=== PATIENT | male | born 1950 | race Caucasian/White ===

== ENCOUNTER 2021-08-07 01:04 | Inpatient (IN) | payer MEDICARE, OTHER ==
[~2021-08-07] VITALS: Ht 182.9 cm; Wt 87.1 kg
[2021-08-07] MEDS ORDERED: ACETAMINOPHEN 325 MG TAB PO ONE (01:30)
[2021-08-07 04:15] LABS: Albumin 1.9 g/dL (3.4-5.0); Calcium 8.2 mg/dL (8.5-10.1)
[2021-08-07 04:20] LABS: BUN/Creatinine Ratio 19.8; Bilirubin, Total 1.8 mg/dL (0.2-1.0); Total Protein 7.2 g/dL (6.4-8.2)
[2021-08-07 04:28] LABS: Potassium 2.6 mmol/L (3.5-5.1)
[2021-08-07] MEDS ORDERED: ASPirin 325 MG TAB PO ONE (06:15)
[2021-08-07] MEDS ORDERED: ENOXAPARIN SOD 100 MG/1 ML SYRINGE SC ONE (06:15)
[2021-08-07] MEDS ORDERED: POTASSIUM CHL 20MEQ/100ML 100 ML IV STA (06:16)
[2021-08-07 06:48] LABS: Basophils # (auto) 0.1 10 ^3/uL (0-0.2); Basophils % (auto) 0.5 % (0.0-2.0); Eosinophils # (auto) 0 10 ^3/uL (0-0.8); Eosinophils % (auto) 0.1 % (0.0-7.0); Hematocrit 30.8 % (41.0-53.0); Hemoglobin 10.4 g/dL (13.5-17.5); Lymphocytes # (auto) 0.4 10 ^3/uL (0.4-5.4); Lymphocytes % (auto) 3.6 % (10.0-50.0); Mean Corpuscular Hemoglobin 28.3 pg (28.0-32.0); Mean Corpuscular Hgb Conc. 33.8 g/dL (32.0-36.0); Mean Corpuscular Volume 83.6 fL (80.0-100.0); Monocytes # (auto) 0.6 10 ^3/uL (0-1.3); Monocytes % (auto) 5.4 % (0.0-12.0); Neutrophils # (auto) 10.5 10 ^3/uL (1.6-8.6); Neutrophils % (auto) 90.4 % (37.0-80.0); Red Blood Cells 3.68 10^6/uL (4.5-5.90); Red Cell Distribution Width 16.4 % (11.8-14.3); White Blood Cell 11.6 10^3/uL (4.4-10.8)
[2021-08-07 06:59] LABS: INR 1.17 (0.9-1.15)
[2021-08-07] MEDS ORDERED: NITROGLYCERIN 0.4 MG SL TAB SL PRN (07:15)
[2021-08-07] MEDS ORDERED: ONDANSETRON HCL 4 MG/2 ML VIAL IV PRN (07:15)
[2021-08-07] MEDS ORDERED: ALBUMIN 5% 250 ML IV ONE (07:15)
[2021-08-07] MEDS: SODIUM CHLORIDE 0.9% 1,000 ML IV SCH ×2 (07:15→19:51)
[2021-08-07] MEDS ORDERED: MORPHINE SULFATE INJECTION 2 MG/ML SYRG IV PRN (07:15)
[2021-08-07] MEDS ORDERED: POTASSIUM CHL 20 Meq TABLET PO ONE (09:45)
[2021-08-07] MEDS: PANTOPRAZOLE 40 MG TAB PO SCH (10:26)
[2021-08-07 10:38] LABS: Cholesterol 106 mg/dL (< 200); Magnesium 2.8 mg/dL (1.6-2.6); Triglycerides 461 mg/dL (< 150)
[2021-08-07 10:41] LABS: HDL Cholesterol 9 mg/dL (40-59)
[2021-08-07 10:59] LABS: Urine Bacteria FEW /hpf (None Seen); Urine Blood 3+ /uL (Negative); Urine Specific Gravity 1.016 (1.001-1.035); Urine WBC 9 /hpf (0 - 3)
[2021-08-07] MEDS ORDERED: levoFLOXacin 750MG 150 ML IV ONE (13:15)
[2021-08-07 13:52] LABS: Hepatitis A Ab IgM Negative
[2021-08-07 14:17] LABS: Hepatitis B Core IgM Negative
[2021-08-07 14:25] LABS: Hepatitis C Antibody Negative (Negative)
[2021-08-07 15:36] LABS: Calcium 8.1 mg/dL (8.5-10.1); Potassium 3.1 mmol/L (3.5-5.1)
[2021-08-07 15:56] LABS: Alcohol, Urine < 3.0 mg/dL (0-10); Amphetamine Screen, Urine NEGATIVE (NEGATIVE); Barbiturate Scree,Urine NEGATIVE (NEGATIVE); Benzodiazephine Screen, Urine NEGATIVE (NEGATIVE); Cannabinoid Screen, Urine NEGATIVE (NEGATIVE); Cocaine Screen, Urine NEGATIVE (NEGATIVE); Opiate Scree,Urine NEGATIVE (NEGATIVE); Phencyclidine Screen, Urine NEGATIVE (NEGATIVE)
[2021-08-07 20:30] VITALS: BP 105/70
[2021-08-07 21:57] VITALS: BP 105/70
[2021-08-07] MEDS ORDERED: ATORVASTATIN 20 MG TAB PO SCH ×2 (22:00)
[2021-08-07] MEDS: HYDROcodone-ACET 5/325MG TAB PO PRN (23:29)
[2021-08-08] MEDS ORDERED: ATEN50TA19 PO (02:08)
[2021-08-08] MEDS ORDERED: CYCL-839 PO (02:08)
[2021-08-08] MEDS ORDERED: METH2.5T PO (02:08)
[2021-08-08] MEDS ORDERED: POTA10TA51 PO (02:08)
[2021-08-08] MEDS ORDERED: ROSU10TA16 PO (02:08)
[2021-08-08] MEDS ORDERED: CHOL20007 PO (02:08)
[2021-08-08] MEDS ORDERED: PRED10TA PO (02:08)
[2021-08-08] MEDS ORDERED: PANT40T PO (02:08)
[2021-08-08] MEDS ORDERED: FOLI1TAB6 PO (02:08)
[2021-08-08] MEDS ORDERED: INFLUENZA QUAD 2021-2022 0.5 ML SYRG IM ONE (03:15)
[2021-08-08] MEDS ORDERED: PNEUMOCOCCAL VACC POLYS 25 MCG/0.5 ML VIAL IM ONE (03:15)
[2021-08-08 05:00] VITALS: BP 101/67
[2021-08-08 05:45] LABS: Hematocrit 31.8 % (41.0-53.0); Hemoglobin 10.3 g/dL (13.5-17.5); Mean Corpuscular Hemoglobin 27.6 pg (28.0-32.0); Mean Corpuscular Hgb Conc. 32.5 g/dL (32.0-36.0); Mean Corpuscular Volume 84.9 fL (80.0-100.0); Red Blood Cells 3.74 10^6/uL (4.5-5.90); Red Cell Distribution Width 16.7 % (11.8-14.3); White Blood Cell 12.1 10^3/uL (4.4-10.8)
[2021-08-08 05:59] LABS: Basophils % (manual) 0 (0.0-2.0); Blast Cells 0; Eosinophils % (manual) 0 (0-7); Myelocytes % 0; Promyelocytes % 0; Reactive Lymphocytes 0
[2021-08-08 09:00] VITALS: BP 104/66
[2021-08-08 09:08] LABS: Albumin 1.6 g/dL (3.4-5.0); Calcium 7.7 mg/dL (8.5-10.1); Potassium 3.4 mmol/L (3.5-5.1)
[2021-08-08 09:11] LABS: BUN/Creatinine Ratio 21.7; Bilirubin, Total 2.2 mg/dL (0.2-1.0); Total Protein 6.6 g/dL (6.4-8.2)
[2021-08-08] MEDS ORDERED: SODIUM BICARBONATE 50ML VIAL 150 ML in SOD CHL 0.45% 1,000 ML IV ONE (09:30)
[2021-08-08 09:33] LABS: Band Neutrophils % (manual) 4; Lymphocytes % (manual) 8 (10.0-50.0); Metamyelocytes % 1; Monocytes % (manual) 4 (0-12)
[2021-08-08] MEDS: PANTOPRAZOLE 40 MG TAB PO SCH (09:51)
[2021-08-08] MEDS: ENOXAPARIN SOD 30 MG/0.3 ML SYRINGE SC SCH (09:52)
[2021-08-08] MEDS ORDERED: ASPirin 81 mg TAB PO SCH (10:00)
[2021-08-08 13:00] VITALS: BP 103/65
[2021-08-08 16:09] LABS: % Iron Saturation 15.1 % (20-55)
[2021-08-08 16:17] LABS: Folate (Folic Acid) 22.06 ng/mL (5.38-24)
[2021-08-08 17:00] VITALS: BP 108/66
[2021-08-08 22:00] VITALS: BP 114/72
[2021-08-09 05:00] VITALS: BP 138/81
[2021-08-09] MEDS: HYDROcodone-ACET 5/325MG TAB PO PRN ×2 (05:40→15:56)
[2021-08-09 06:42] LABS: Albumin 1.5 g/dL (3.4-5.0); BUN/Creatinine Ratio 21.1; Calcium 7.8 mg/dL (8.5-10.1)
[2021-08-09 06:44] LABS: Bilirubin, Total 2.2 mg/dL (0.2-1.0); Total Protein 6.2 g/dL (6.4-8.2)
[2021-08-09 07:17] LABS: Potassium 2.9 mmol/L (3.5-5.1)
[2021-08-09 09:00] VITALS: BP 108/64
[2021-08-09] MEDS ORDERED: POTASSIUM CHL 20 Meq TABLET PO ONE (09:00)
[2021-08-09] MEDS ORDERED: POTASSIUM CHLORIDE 40 MEQ, LIDOCAINE 1% (LOCAL ANESTH.) 4 ML in SODIUM CHL 0.9% 250 ML IV ONE (09:00)
[2021-08-09] MEDS ORDERED: levoFLOXacin 750MG 150 ML IV SCH (10:00)
[2021-08-09] MEDS: PANTOPRAZOLE 40 MG TAB PO SCH (10:00)
[2021-08-09] MEDS: ENOXAPARIN SOD 30 MG/0.3 ML SYRINGE SC SCH (10:00)
[2021-08-09] MEDS ORDERED: LACTULOSE 20Gm/30ML SOLN PO ONE (11:00)
[2021-08-09 13:00] VITALS: BP 108/69
[2021-08-09 17:00] VITALS: BP 116/69
[2021-08-10] MEDS ORDERED: LACTULOSE 20Gm/30ML SOLN PO PRN (10:00)
== END 2021-08-09 20:00 | disposition short-term general hospital (02) | DRG 280 ==
LOC: ER 01:04 → EDBD 01:04 → TELE 07:03 → TELE-CENTR 20:25
PROVIDERS: ADMIT Nurse Practitioner; ATTEND Internal Medicine
DX: I35.0 Nonrheumatic aortic (valve) stenosis (principal); J18.9 Pneumonia, unspecified organism; I21.A1 Myocardial infarction type 2; E43 Unspecified severe protein-calorie malnutrition; N17.9 Acute kidney failure, unspecified; M62.82 Rhabdomyolysis; E87.1 Hypo-osmolality and hyponatremia; Z20.822 Contact with and (suspected) exposure to COVID-19; D64.9 Anemia, unspecified; N18.9 Chronic kidney disease, unspecified; E11.51 Type 2 diabetes mellitus with diabetic peripheral angiopathy without gangrene; E78.1 Pure hyperglyceridemia; E87.6 Hypokalemia; I12.9 Hypertensive chronic kidney disease with stage 1 through stage 4 chronic kidney disease, or unspecified chronic kidney disease; K59.00 Constipation, unspecified; M06.9 Rheumatoid arthritis, unspecified; M19.90 Unspecified osteoarthritis, unspecified site; R31.0 Gross hematuria; E78.5 Hyperlipidemia, unspecified; Z95.2 Presence of prosthetic heart valve; Z91.81 History of falling; Z68.26 Body mass index [BMI] 26.0-26.9, adult
CPT/HCPCS: 36415; 70450; 71045; 74176; 76775; 80048; 80053; 80061; 80074; 80307; 81001; 82306; 82550; 82607; 82746; 83036; 83540; 83550; 83605; 83735; 83874; 83880; 84443; 84484; 85007; 85025; 85027; 85610; 86038; 86160; 86431; 87081; 87426; 93005; 93306; 93886; 96365; 96372; 97163; G0378; J1956; J2001; J2405; J3480